=== PATIENT | female | born 2005 | race Caucasian/White ===

== ENCOUNTER → 2024-02-12 13:03 | Outpatient (REF) | payer OTHER, SELFPAY | LOC: HWRAD 13:03 | PROVIDERS: ATTENDING PHYSICIAN Obstetrics & Gynecology Gynecology; FAMILY PHYSICIAN Family Medicine | DX: Z30.431 Encounter for routine checking of intrauterine contraceptive device (principal) | CPT/HCPCS: 76830; 76856 ==

== ENCOUNTER 2024-03-18 12:28 | Outpatient (RCR) | payer OTHER, SELFPAY | END 2024-03-18 23:59 | disposition home or self-care (01) | LOC: RPT 12:28 | PROVIDERS: ATTENDING PHYSICIAN Urology; FAMILY PHYSICIAN Family Medicine | DX: N30.10 Interstitial cystitis (chronic) without hematuria (principal); M62.89 Other specified disorders of muscle; Z73.6 Limitation of activities due to disability | CPT/HCPCS: 97110; 97161; 97530 ==

== ENCOUNTER 2024-04-08 17:08 | Outpatient (RCR) | payer OTHER, SELFPAY | END 2024-04-08 23:59 | disposition home or self-care (01) | LOC: RPT 17:08 | PROVIDERS: ATTENDING PHYSICIAN Urology; FAMILY PHYSICIAN Family Medicine | DX: M62.89 Other specified disorders of muscle; Z73.6 Limitation of activities due to disability; N30.10 Interstitial cystitis (chronic) without hematuria | CPT/HCPCS: 97110; 97530 ==

== ENCOUNTER 2024-05-06 15:09 | Outpatient (RCR) | payer OTHER, SELFPAY | END 2024-05-06 23:59 | disposition home or self-care (01) | LOC: RPT 15:09 | PROVIDERS: ATTENDING PHYSICIAN Urology; FAMILY PHYSICIAN Family Medicine | DX: N30.10 Interstitial cystitis (chronic) without hematuria (principal); M62.89 Other specified disorders of muscle; Z73.6 Limitation of activities due to disability | CPT/HCPCS: 97110 ==

== ENCOUNTER 2024-06-03 13:07 | Outpatient (RCR) | payer OTHER, SELFPAY | END 2024-06-03 23:59 | disposition home or self-care (01) | LOC: RPT 13:07 | PROVIDERS: ATTENDING PHYSICIAN Urology; FAMILY PHYSICIAN Family Medicine | DX: N30.10 Interstitial cystitis (chronic) without hematuria (principal); M62.89 Other specified disorders of muscle; Z73.6 Limitation of activities due to disability | CPT/HCPCS: 97110; 97112 ==

== ENCOUNTER 2025-03-04 14:38 | Emergency (ER) | payer OTHER, SELFPAY ==
[2025-03-04 14:40] VITALS: BP 135/85
[2025-03-04 15:10] LABS: Hematocrit 42.1 % (37.0-47.0); Hemoglobin 14.5 g/dL (12.0-16.0); Mean Corp Hgb Conc. 34.4 g/dL (33.0-37.0); Mean Corpuscular Volume 91.3 fL (81.0-99.0); Nucleated Red Blood Cells % 0 %; Platelet Count 227 10^3/uL (130-400); Red Cell Dist. Width 11.8 % (11.5-14.5); Urine Character Clear (Clear)
[2025-03-04 15:16] LABS: Urine White Cell >100 /HPF (0-5)
[2025-03-04 15:32] LABS: HCG, Serum Qualitative Screen Negative
[2025-03-04 15:34] LABS: ALT (SGPT) 16 U/L (0-35); AST (SGOT) 25 U/L (14-36); Albumin 5.6 g/dl (3.5-5.0); Alkaline Phosphatase 60 U/L (38-126); Blood Urea Nitrogen 11 mg/dl (7-17); Calcium 9.9 mg/dl (8.4-10.2); Carbon Dioxide 28 mmol/L (22-30); Chloride 106 mmol/L (98-107); Glucose 78 mg/dl (70-99); Potassium 3.9 mmol/L (3.5-5.1); Sodium 141 mmol/L (135-145); Total Protein 7.8 g/dl (6.3-8.2); eGFR > 60.00
--- NOTE | 2025-03-04 18:20 | ED.GENMED ---
History of Present Illness
General
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
Source: patient
Time Seen by Provider: 03/04/25 18:01
History of Present Illness
History of Present Illness:
19-year-old female with past medical history of IBS, interstitial cystitis, anxiety and depression presenting to the emergency department for evaluation after she has been dealing with urinary tract/symptoms of UTI for the last 2+ weeks, has been on
Bactrim and ampicillin without any relief, today start right flank pain and nausea but no fevers or vomiting prompting her to come to the ER seeking further care. Patient initially was seen by her RECYCLING ASSISTANT for this issue and was given Pyridium which did
not yield any relief and then was started on Bactrim but switched to ampicillin after the urine culture reportedly showed an overgrowth of Streptococcus. Patient notes continued frequency/urgency and pressure and states this does seem different
than a typical interstitial cystitis flare. Patient states that she has no concern for STI although she is amenable to having her urine tested. She does have an IUD in place, LMP was last week although she notes because of the IUD her menstrual is
very sporadic.
Past History
Past History
ED Past Medical History: Psychiatric and Other (Interstitial cystitis)
ED Past Surgical History: None
Social History
Tobacco: Non-smoker
Alcohol: Occasional
Drug: None
Personal: Partner
Living: with family
Review of Systems
Review of Systems
All Other Systems: ROS reviewed and negative except as documented in HPI and ROS
Phy Exam
Physical Exam
Physical Exam:
GENERAL: Alert , in no apparent distress
EYE: clear conjunctiva b/l
HEAD: NCAT
ENT: mmm.
CARDIAC: Regular rate and rhythm .
LUNGS: Clear breath sounds bilaterally, no acute respiratory distress, no wheezes/rales/rhonchi
ABDOMEN: Soft, without focal tenderness, no r/g, mild right CVAT
NEUROLOGICAL: Alert and oriented
SKIN: Warm and dry, skin intact.
MUSCULOSKELETAL: No edema, well perfused.
PSYCH: Normal and appropriate interaction.
Scores
Heart Failure Risk
Heart Failure Risk Score: Not Applicable
Heart Score for Chest Pain Patients
STEMI patient?: Not applicable
Withdrawal Assessment of Alcohol
Withdrawal Assessment Completed?: Not applicable
Course
Orders/Labs/Results
Orders:
Orders
03/04/25 14:44
Test Result ONCE
03/04/25 14:51
Complete Blood Count/With Diff Urgent
Comprehensive Metabolic Panel Urgent
HCG, Serum Qualitative Screen Urgent
Urinalysis Reflex To Culture Urgent
Date Specimen was Collected: 03/04/25
Time Specimen was Collected: 14:44
Urine Microscopic Reflex Cult Urgent
Chlamydia/GC by PCR Urgent
PERRI Source: U
Specimen Description:
Date Specimen was Collected: 03/04/25
Time Specimen was Collected: 14:44
Comment: ADD ON
Urine Culture Urgent
PERRI Source: U
Specimen Description:
Date Specimen was Collected: 03/04/25
Time Specimen was Collected: 14:44
03/04/25 18:03
CT Abd/pel Without Iv Or Oral Urgent
Comment:
Reason For Exam: recurring UTI, flank pain
03/04/25 18:12
Add On - Microbiology Urgent
Tests Added?: gonorrhea/chlamydia through urine
03/04/25 18:13
CefTRIAXone [Rocephin] 1,000 mg IV NOW STA
03/04/25 19:18
Ketorolac [Toradol] 30 mg IV NOW STA
Abnormal Lab Results
03/04/25
14:51
MCH 31.5 H pg
(27.0-31.0)
Albumin 5.6 H g/dl
(3.5-5.0)
Ur Occult Blood Reflex 4+ A
(Negative)
Urine Nitrite (Reflex) Positive A
(Negative)
Urine Bilirubin 1+ A
(Negative)
Urine Urobilinogen 2+ A
(Neg - 1+)
Leukocyte Esterase Rfl 3+ A
(Negative)
Urine RBC 3-6 A /HPF
(0-2)
Urine WBC (Reflex) >100 A /HPF
(0-5)
Urine Bacteria (Reflex) Moderate A
(Negative)
03/04/25 14:51
03/04/25 14:51
Vital Signs
Initial and Last Documented VS:
Initial Vital Signs
Temp Pulse Resp BP Pulse Ox
98.3 F 121 18 135/85 98
03/04/25 14:40 03/04/25 14:40 03/04/25 14:40 03/04/25 14:40 03/04/25 14:40
Last Documented Vital Signs
Temp Pulse Resp BP Pulse Ox
98.4 F 88 18 101/69 100
03/04/25 19:53 03/04/25 19:53 03/04/25 19:53 03/04/25 19:53 03/04/25 19:53
MDM/Problems Addressed
Differential Diagnosis Includes:
Complicated UTI
Renal/Ureteral colic
Pyelonephritis
IC flare
STI
MDM/Problems Addressed:
19-year-old female presented to the ER with multiple weeks of urinary symptoms. Failed 2 separate antibiotics, continued symptoms, no relief with Pyridium. Afebrile here, tachycardia from triage noted, but normal heart rate during my exam. Labs
and urine were initially collected in triage, urine is nitrite positive, 3+ leukocytes and greater than 100 WBCs. There is moderate bacteria so there could be some degree of contamination versus chronic signs of infection given her interstitial
cystitis diagnosis patient follows with Dr. Singh, from urogynecology, will discuss following work up. Rocephin ordered. CT ordered to evaluate for obstructive process
Chronic conditions affecting care: Other (Interstitial cystitis)
*Radiology
Radiology exam reviewed: radiology read reviewed
*Pulse Oximetry
SaO2: 98
Oxygen Mode of Delivery: Room air
Patient hypoxic: no
*Critical Care Note
Total Time (30-74mins, 75-104mins- exclusive of procedures): Not Applicable
Patient Management
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
Escalation/DeEscalation of care consider admission/obs:
Patient CT scan is negative for any acute intra-abdominal pathologies. With shared decision making with the patient and her mother we ultimately decided that patient will be discharged home, she has a follow-up scheduled with her urogynecologist
tomorrow at 3:30 PM. Patient will follow-up at that appointment and if it is deemed patient needs to return to the ER for IV antibiotics and admission we will then proceed with that plan at that time. Will prescribe a course of cefdinir but
patient will wait to take this until she sees her urogynecology team tomorrow. Stable for discharge home.
ED Attending Note
-
Portions of this chart may have been created with voice recognition software.� Occasional wrong word or��sound alike� substitutions may have occurred due to the inherent limitations of voice recognition software.
Discharge Plan
Departure
Patient Disposition: Home (Routine Discharge)
Date of Disposition: 03/04/25
Time of Disposition: 19:32
Patient with high blood pressure during this ER visit?: No
Discharge Problem:
Interstitial cystitis
Instructions: Bladder Pain Syndrome (Interstitial Cystitis) (DC)
Prescriptions:
New
cefdinir 300 mg capsule
300 mg PO BID 7 Days Qty: 14 0RF
No Action
cephalexin 500 MG capsule
500 mg PO TID Qty: 21 0RF
phenazopyridine 100 MG tablet
100 mg PO TIDPRN PRN (Reason: dysuria) Qty: 14 0RF
cephalexin 500 MG capsule
500 mg PO QID Qty: 40 0RF
Referrals:
UNKNOWN - PT DOES,NOT KNOW [Family Provider]
Interventions
Interventions:
*Risk Screen - Suicide Last Done: 03/04/25 14:40
*General Assessment Last Done: 03/04/25 14:40
*Neglect/Abuse Screening Last Done: 03/04/25 14:40
*ED- Fall Risk Assessment Last Done: 03/04/25 14:40
*ED COVID-19 Vaccine History Last Done: 03/04/25 14:40
*ED Influenza Vaccine History Last Done: 03/04/25 14:40
*Nursing Disposition Last Done: 03/04/25 19:54
ED-Female Genitourinary Assessment Last Done: 03/04/25 19:10
Discharge Date and Time
Discharge Date/Time: 03/04/25 19:59
Print Language: STATELESS
[2025-03-04 19:09] VITALS: BMI 26.6
[2025-03-04] MEDS: ROCEPHIN 1000 MG IV (19:15)
[2025-03-04] MEDS: TORADOL 30 MG IV (19:20)
[2025-03-04 19:53] VITALS: BP 101/69
== END 2025-03-04 19:59 | disposition home or self-care (01) ==
LOC: EMR 14:38
PROVIDERS: EMERGENCY PHYSICIAN Emergency Medicine
DX: N30.10 Interstitial cystitis (chronic) without hematuria (principal); K58.9 Irritable bowel syndrome, unspecified; F41.9 Anxiety disorder, unspecified; F32.A Depression, unspecified; Z87.440 Personal history of urinary (tract) infections
CPT/HCPCS: 99284; 96374; 96375; 74176; 80053; 81003; 81015; 84703; 85025; 87086; 87491; 87591